=== PATIENT | female | born 1965 | race Caucasian/White ===

== ENCOUNTER 2016-12-06 17:41 | Emergency (ER) | payer BC ==
[2016-12-06] MEDS ORDERED: KETOROLAC TROMETHAMINE INJ/PF 30 MG/1 ML SDV IV ONE (18:03)
--- NOTE | 2016-12-06 18:06 | ER Document Report ---
ED Extremity Problem, Upper - General Chief Complaint: Arm Injury Stated Complaint: LEFT ARM PAIN Time Seen by Provider: 12/06/16 17:49 Notes: The patient is a 51-year-old female who presents by EMS [place]00 [place], fell and is now complaining of left forearm pain. She denies numbness, tingling, open wounds, head injury or any other injuries. - Related Data Allergies/Adverse Reactions: No Known Allergies Allergy (Verified 12/06/16 18:11) Past Medical History - General Information source: Patient - Social History Smoking Status: Current Every Day Smoker Frequency of alcohol use: Heavy Family History: Reviewed & Not Pertinent Review of Systems - Review of Systems Notes: REVIEW OF SYSTEMS: CONSTITUTIONAL: -fevers, -chills EENT: -eye pain, -difficulty swallowing, -nasal congestion CARDIOVASCULAR:-chest pain, -syncope. RESPIRATORY: -cough, -SOB GASTROINTESTINAL: -abdominal pain, - nausea, -vomiting, -diarrhea GENITOURINARY: -dysuria, -hematuria MUSCULOSKELETAL: +left forearm pain, -back pain, -neck pain SKIN: -rash or skin lesions. HEMATOLOGIC: -easy bruising or bleeding. LYMPHATIC: -swollen, enlarged glands. NEUROLOGICAL: -altered mental status or loss of consciousness, -headache, - neurologic symptoms PSYCHIATRIC: -anxiety, -depression. ALL OTHER SYSTEMS REVIEWED AND NEGATIVE. Physical Exam - Vital signs Vitals: Temp 98.1 F 12/06/16 17:52 - Notes Notes: PHYSICAL EXAMINATION: GENERAL: Well-appearing, well-nourished and in no acute distress. HEAD: Atraumatic, normocephalic. EYES: Pupils equal round and reactive to light, extraocular movements intact, sclera anicteric, conjunctiva are normal. ENT: nares patent, oropharynx clear without exudates. Moist mucous membranes. NECK: Normal range of motion, supple without lymphadenopathy LUNGS: Breath sounds clear to auscultation bilaterally and equal. No wheezes rales or rhonchi. HEART: Regular rate and rhythm without murmurs ABDOMEN: Soft, nontender, normoactive bowel sounds. No guarding, no rebound. No masses appreciated. EXTREMITIES: Swelling and pain of distal left forearm, N/V intact distally, brisk capillary refill NEUROLOGICAL: Cranial nerves grossly intact. Normal speech, normal gait. Normal sensory and motor exams. PSYCH: Mildly aggressive, smells of ETOH SKIN: Warm, Dry, normal turgor, no rashes or lesions noted. Course - Re-evaluation Re-evalutation: Patient has evidence of a left distal ulna fracture that does not require reduction at this time. Sh is neurovascularly intact distally. Splint placed by PCT and instructed her to follow-up with orthopedics. On discharge, she is walking with a steady gait. She said that she is calling a friend to pick her up. - Vital Signs Vital signs: Temp Pulse Resp BP Pulse Ox 98.1 F 104 H 16 117/84 97 12/06/16 17:52 12/06/16 19:09 12/06/16 19:09 12/06/16 19:09 12/06/16 19:09 - Diagnostic Test Radiology reviewed: Image reviewed, Reports reviewed Radiology results interpreted by me: Left forearm x-ray: distal ulnar fracture Procedures - Immobilization Left Arm Pre-Proc Neuro Vasc Exam: Normal Immobilizer type: Sugar tong Performed by: PCT Post-Proc Neuro Vasc Exam: Normal, Unchanged from pre-exam Alignment checked and good: Yes Discharge - Discharge Clinical Impression: Ulna distal fracture Qualifiers: Encounter type: initial encounter Fracture type: closed Fracture morphology: unspecified fracture morphology Laterality: left Qualified Code(s): S52.602A - Unspecified fracture of lower end of left ulna, initial encounter for closed fracture Alcohol intoxication Qualifiers: Complication of substance-induced condition: uncomplicated Qualified Code(s): F10.920 - Alcohol use, unspecified with intoxication, uncomplicated Condition: Stable Disposition: HOME, SELF-CARE Additional Instructions: Fractured Ulna The ulna is fractured. This type of fracture is typically caused by falling onto the outstretched hand. The fractures are not serious, however, and should heal well with adequate protection. Your physician's evaluation shows the bones are now in good position to heal. A cast or splint is used to protect the fractures. For the first few days after the injury, the arm should be elevated and ice packed. Most often, a splint is used first, with a cast later on. Healing takes from four to eight weeks, depending on the age of the patient and the seriousness of the broken bones. Your doctor has explained the treatment plan. It's important that you follow up as instructed to prevent complications. Call the doctor or return at once if severe pain or swelling occur, or if the hand becomes numb, swollen, or discolored. Prescriptions: Acetaminophen with Codeine [Tylenol #3 Tablet] 1 each PO Q4HP PRN #10 tablet PRN Reason: Referrals: WILMER MONTANA MD [ACTIVE STAFF] - Follow up as needed [facility] [Outside] - Follow up as needed
--- NOTE | 2016-12-06 18:19 | RADIOLOGY REPORT (SQ) ---
EXAM DESCRIPTION: FOREARM LEFT COMPLETED DATE/TIME: 12/06/2016 6:09 pm REASON FOR STUDY: fall COMPARISON: None. NUMBER OF VIEWS: Two views. TECHNIQUE: Two radiographic images acquired of the left forearm, including elbow and wrist in at [address] one projection. LIMITATIONS: None. FINDINGS: MINERALIZATION: Normal. BONES: Fracture of the distal ulna with mild angulation. Old ununited fracture of the ulnar styloid. SOFT TISSUES: No obvious swelling or foreign body. OTHER: No other significant finding. IMPRESSION: FRACTURE OF THE DISTAL ULNA. TECHNICAL DOCUMENTATION: JOB ID: [id number] [employer]- All Rights Reserved
[2016-12-06 19:11] VITALS: BP 117/84
== END 2016-12-06 19:18 | disposition home or self-care (01) ==
LOC: ER 17:41
PROC: 2W3DX1Z Immobilization of Left Lower Arm using Splint (ICD-10-PCS; principal; 2016-12-06)
DX: S52.602A Unspecified fracture of lower end of left ulna, initial encounter for closed fracture (principal); F10.920 Alcohol use, unspecified with intoxication, uncomplicated; W19.XXXA Unspecified fall, initial encounter; F17.200 Nicotine dependence, unspecified, uncomplicated
CPT/HCPCS: 99283; 96374; 73090; 29125; J1885